=== PATIENT | female | born 1995 | race Two or more races ===

== ENCOUNTER → 2024-03-29 | Outpatient (CLI) | payer BC, SELFPAY ==
[2024-03-29 12:02] LABS: Albumin, Serum 4.5 gm/dL (3.5-5.0); Anion Gap 9 (7-16); BUN/Creatinine Ratio 19 Ratio (12-20); Blood Urea Nitrogen 17 mg/dL (9-23); Calcium 9.9 mg/dL (8.3-10.6); Calcium (Corrected) 9.9 mg/dL (8.5-10.1); Carbon Dioxide 28.6 mMol/L (20.0-31.0); Chloride 101 mMol/L (98-107); Creatinine (Component) 0.9 mg/dL (0.6-1.3); Glucose 82 mg/dL (74-106); Osmolality,Calculated 278 (275-295); Phosphorous 3.5 mg/dL (2.4-5.1); Potassium 4.1 mMol/L (3.4-5.1); Sodium 139 mMol/L (136-145); Uric Acid 4.9 mg/dL (3.1-7.8); eGFR > 60 See Note
[2024-04-06 06:23] LABS: Aldosterone* 10 ng/dL; Cortisol,total,LC/MS/MS* 13.5 mcg/dL
[2024-04-09 06:49] LABS: Renin Activity, Plasma* 4.74 ng/mL/h (0.25-5.82)
== END | disposition home or self-care (01) ==
PROVIDERS: PCP Internal Medicine; Referring Provider Internal Medicine; Visit Provider Internal Medicine
DX: I10 Essential (primary) hypertension (principal)
CPT/HCPCS: 36415; 80069; 82088; 82533; 84244; 84550

== ENCOUNTER → 2024-04-02 | Outpatient (CLI) | payer BC, SELFPAY ==
[2024-04-02 10:43] LABS: Misc Send Out* See Sep Rpt
[2024-04-02 11:36] LABS: Sodium,Urine 101 mMol/L (20-110)
[2024-04-02 12:29] LABS: Sodium, Urine Volume 800 mL/24hr (600-1800); Sodium,24hr Urine 81 mEq/24hr (40-220)
[2024-04-06 15:37] LABS: Cortisol, 24-Hr Volume 900 mL
[2024-04-09 06:56] LABS: Cortisol, Free, 24-Hour Urine 16.6 mcg/24 h (4.0-50.0); Creatinine, 24-Hour Urine 0.87 g/24 h (0.50-2.15)
[2024-04-12 22:04] LABS: Aldosterone, 24-Hr Volume 900 mL
[2024-04-13 06:28] LABS: Aldosterone, 24-Hour Urine 6.7 mcg/24 h; Creatinine, 24-Hour Urine 1.15 g/24 h (0.50-2.15)
[2024-04-16 17:49] LABS: Cat VMA Volume, 24Hr 900 mL
[2024-04-17 06:38] LABS: Calculated Total (E+NE) 24 mcg/24 h (26-121); Creatinine, 24-Hour Urine 1.25 g/24 h (0.50-2.15); Dopamine, 24 hr Urine 254 mcg/24 h (52-480); Epinephrine, 24-Hour Urine <2 mcg/24 h (2-24); Norepinephrine, 24 hr Ur 24 mcg/24 h (15-100); VMA, 24-Hour Urine 2.6 mg/24 h (6 OR LESS)
== END | disposition home or self-care (01) ==
LOC: SLDO 10:20
PROVIDERS: Referring Provider Internal Medicine; Visit Provider Internal Medicine
DX: I10 Essential (primary) hypertension (principal)
CPT/HCPCS: 82088; 82384; 82530; 82570; 83835; 84300; 84585

== ENCOUNTER → 2024-04-04 | Outpatient (CLI) | payer BC, SELFPAY ==
--- NOTE | 2024-04-04 12:00 | XR_ITS ---
Examination: Retroperitoneal ultrasound, complete Technique: Multiple high resolution grayscale images of the retroperitoneum obtained, including kidneys and bladder. Exam date and time:March 15, 2025 [id number] hrs. Indications: Uncontrolled hypertension beginning 2 weeks ago Findings: Right kidney 10.1 x 5.2 x 4.3 cm cortex 1.7 cm Left kidney 12.5 x 5.4 x 5.5 cm cortex 1.8 cm Mild left renal parenchymal scar formation No hydronephrosis No bladder mass or bladder calculi Bladder prevoid volume 589 cc postvoid volume 0 cc Impression: Mild left renal parenchymal scar formation No hydronephrosis
== END | disposition home or self-care (01) ==
LOC: CDIM 11:45
PROVIDERS: PCP Internal Medicine; Referring Provider Internal Medicine; Visit Provider Internal Medicine
DX: N28.89 Other specified disorders of kidney and ureter (principal)
CPT/HCPCS: 76770